=== PATIENT | male | born 1990 | race Caucasian/White ===

== ENCOUNTER 2020-04-04 14:00 | Emergency (ER) | payer BC ==
[2020-04-04] MEDS ORDERED: DIPH/PERTUSS(ACELL)/TETANUS VAC/PF 0.5 ML SYR (>=10YO) IM ONE (15:01)
--- NOTE | 2020-04-04 15:03 | ER Document Report ---
ED Medical Screen (RME) - General Chief Complaint: Laceration Stated Complaint: RIGHT FINGER INJURY Time Seen by Provider: 04/04/20 14:58 Mode of Arrival: Ambulatory Information source: Patient Notes: 29-year-old male presented to ED with a laceration to the right index finger. It is about 2 cm long. He does need tetanus immunization which has been ordered. He is alert oriented respirations regular and unlabored speaking full sentences. I have greeted and performed a rapid initial assessment of this patient. A comprehensive ED assessment and evaluation of the patient, analysis of test results and completion of medical decision making process will be conducted by an additional ED providers. - Related Data Allergies/Adverse Reactions: No Known Allergies Allergy (Verified 04/04/20 14:58) Physical Exam - Vital signs Vitals: Temp Pulse Resp BP Pulse Ox 98.3 F 70 18 126/93 H 97 04/04/20 14:16 04/04/20 14:16 04/04/20 14:16 04/04/20 14:16 04/04/20 14:16 Course - Vital Signs Vital signs: Temp Pulse Resp BP Pulse Ox 98.3 F 70 18 126/93 H 97 04/04/20 14:16 04/04/20 14:16 04/04/20 14:16 04/04/20 14:16 04/04/20 14:16
[2020-04-04] MEDS ORDERED: LIDOCAINE 1% INJ-PF (10 MG/ML) 30 ML SDV INJ ONE (20:20)
--- NOTE | 2020-04-04 21:24 | ER Document Report ---
HPI - HPI Time Seen by Provider: 04/04/20 14:58 Pain Level: 2 Notes: Otherwise healthy 21-year-old male presenting to the emergency department chief complaint of laceration to his right index finger. Patient reports this occurred just prior to arrival while using a kitchen knife. He is unsure when his last Tdap was. He states he has full range of motion and normal sensation of the finger. - CONSTITUTIONAL Constitutional: DENIES: Fever, Chills Past Medical History - General Information source: Patient - Social History Smoking Status: Never Smoker Frequency of alcohol use: None Drug Abuse: None Family History: Reviewed & Not Pertinent Patient has homicidal ideation: No - Medical History Medical History: Negative Surgical Hx: Negative - Immunizations Immunizations up to date: Yes Vertical Provider Document - CONSTITUTIONAL Notes: PHYSICAL EXAMINATION: GENERAL: Well-appearing, well-nourished and in no acute distress. HEAD: Atraumatic, normocephalic. EYES: Pupils equal round extraocular movements intact, conjunctiva are normal. ENT: Nares patent NECK: Normal range of motion LUNGS: No respiratory distress Musculoskeletal: Normal range of motion NEUROLOGICAL: Normal speech, normal gait. PSYCH: Normal mood, normal affect. SKIN: 3 cm laceration to right index finger over the just proximal to the PIP. Full range of motion, cap refill less than 3 seconds, no active bleeding noted. Course - Re-evaluation Re-evalutation: Laceration repaired under sterile technique, patient tolerated well. 5 sutures placed. Patient will be started on cephalexin for 5 days. Patient understands ED return precautions. - Vital Signs Vital signs: Temp Pulse Resp BP Pulse Ox 98.3 F 70 18 126/93 H 97 04/04/20 14:58 04/04/20 14:16 04/04/20 14:16 04/04/20 14:16 04/04/20 14:16 Procedures - Laceration/Wound Repair Right index finger Wound length (cm): 3 Wound's Depth, Shape: Superficial Laceration pre-procedure: Sterile PPE donned Anesthetic type: 1% Lidocaine Wound Repaired With: Sutures Suture Size/Type: 5:0 Number of Sutures: 5 Post-procedure wound care: Sterile dressing applied Post-procedure NV exam normal: Yes Discharge - Discharge Clinical Impression: Laceration Condition: Stable Disposition: HOME, SELF-CARE Additional Instructions: Laceration Care Your laceration has been sutured to keep the skin edges aligned during healing. The time of suture removal depends on the nature and location of your cut. Please follow the care instructions the doctor has outlined for you and return for further care, according to the schedule you've been given. Keep the wound and dressing clean. Unless you were told otherwise, you may shower daily, blotting the wound dry with a clean, unused towel. At other times, If the dressing gets wet or blood soaked, remove it and blot the wound dry, then reapply a new dressing. Unless you were instructed otherwise, dres sings should be changed at least daily. If any signs of infection occur (swelling, redness, increasing tenderness, red streaks, tender lumps in the armpit or groin above the laceration, or fever) , see the doctor immediately. Please return to the emergency department or your primary care provider in 8-10 days for suture removal. Please return earlier if you develop any signs of infection such as increased redness, swelling, foul-smelling drainage or fever. Prescriptions: Cephalexin [Keflex] 500 mg PO BID #10 capsule
[2020-04-04 22:32] VITALS: BP 146/90
== END 2020-04-04 22:32 | disposition home or self-care (01) ==
LOC: ER 14:00
DX: S61.210A Laceration without foreign body of right index finger without damage to nail, initial encounter (principal); W26.0XXA Contact with knife, initial encounter; Z23 Encounter for immunization
CPT/HCPCS: 99282; 90471; 90715; 12002; J3490